=== PATIENT | male | born 1995 | race Hispanic/Latino ===

== ENCOUNTER 2022-11-20 08:04 | Day surgery (SDC) | payer OTHER ==
[2022-11-20] MEDS ORDERED: Ringers Lactate 1,000 ML IV ONE (08:26)
[2022-11-20] MEDS ORDERED: FENTANYL CITR 100 MCG/2 ML ONE (08:56)
[2022-11-20] MEDS ORDERED: dexAMETHasone 10 MG/ML VIAL ONE (08:56)
[2022-11-20] MEDS ORDERED: propofoL 200 MG/20 ML VIAL IV ONE (08:56)
[2022-11-20] MEDS ORDERED: LIDOCAINE 2% MPF 5 ML VIAL ONE (08:56)
[2022-11-20] MEDS ORDERED: ROCURONIUM 50 MG/5 ML VIAL IV ONE (08:56)
[2022-11-20] MEDS ORDERED: MIDAZOLAM HCL 2 MG/2 ML INJ ONE (08:56)
[2022-11-20] MEDS ORDERED: ONDANSETRON 4 MG/2 ML VIAL ONE (08:57)
[2022-11-20] MEDS ORDERED: LIDOCAINE 1% W/EPI 1:100,000 10 ML VIAL ONE (09:15)
[2022-11-20] MEDS ORDERED: OXYMETAZOLINE HCL 0.05% 15ML NAS ONE (10:01)
[2022-11-20 10:35] VITALS: O2SAT 100
[2022-11-20] MEDS ORDERED: HYDROCODONE/APAP 7.5/325 MG TAB ONE (11:18)
[2022-11-20 13:38] VITALS: BP 143/75; TEMP 98
--- NOTE | 2022-11-21 20:55 | OP ---
Date of Procedure: 11/20/2022 Surgeon: SARA NATH Primary Care Physician: Unknown. Preoperative Diagnosis: Nasopharynx neoplasm, uncertain behavior. Postoperative Diagnosis: Nasopharynx neoplasm, uncertain behavior. Procedures: 1.Bilateral nasopharyngoscopy with biopsies of nasopharyngeal neoplasm. 2.Excision/destruction of nasopharyngeal neoplasm. Anesthesia: General endotracheal anesthesia was administered. Afrin-soaked nasal pledgets were used for vasoconstriction and decongestion. Specimens: Taken from the nasopharynx. Estimated Blood Loss: Less than 5 mL. 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 Complications: None. Disposition: Stable. The patient tolerated the procedure well. Indication For Procedure: The patient is a pleasant 27-year-old male who presented to my outpatient clinic initially with ear pain that has been refractory to medical management. 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 These were indications to bring the patient to operative suite for the above-mentioned procedures. He understood, all ques tions were answered. Risks versus benefits, complications were explained in detail and a consent for m signed, which was placed in the chart. Description Of Procedure: The patient was transferred from the preoperative holding area to the oper ative suite by Department of Anesthesia, placed on the operating table supine, and sedated and intuba lorrie in normal fashion. Table was rotated 180 degrees and head rest was placed. Afrin-soaked nasal p ledgets were introduced into bilateral nasal cavities and held in place for approximately 10 to 15 mi nutes. The pledgets were removed and after the patient was sedated and prepped and draped, a 0 degree rigid nasal endoscope was introduced into bilateral nasal cavities along the floor and photodocumentation w as obtained. Neoplasm was removed utilizing Blakesley biting forceps. Multiple biopsies were taken. Then Afrin-soaked nasal pledgets were reintroduced into the nasal cavities. Next, I inserted a McIvor retractor and introduced it right along the endotracheal tube and then susp ended it from the Wang stand. After removing the pledgets, I introduced red rubber catheters into bi lateral nasal cavities in order to suspend the soft palate and uvula. Visualizing nasopharynx area, I performed destruction and excision of the remaining lesion with sucti on Bovie cauterization and curved Blakesley forceps. Hemostasis was achieved with suction Bovie. A flexible orogastric tube was inserted into the esophagus and stomach and all fluid contents were lenny dennis. The patient was then de-suspended from [facility]. The McIvor retractor was removed. The patient's jaw was checked and found to be in proper alignment. He was transferred back by Department of Anesth esia in stable condition where he was subsequently awakened, extubated, and transferred to postoperat caitlin care unit. He will be discharged home on [id number] analgesia medication and will follow u p in 1 to 2 weeks or sooner if needed. CORNELIO/JAIDEN Voice ID: [id number] Report ID: [id number]
== END 2022-11-20 12:10 | disposition home or self-care (01) ==
LOC: OR 08:04
PROVIDERS: ATTEND Otolaryngology Facial Plastic Surgery
PROC: 09BN8ZX Excision of Nasopharynx, Via Natural or Artificial Opening Endoscopic, Diagnostic (ICD-10-PCS; 2022-11-20)
PROC: 09B Ear, Nose, Sinus, Excision (ICD-10-PCS; principal; 2022-11-20 09:15)
DX: D37.05 Neoplasm of uncertain behavior of pharynx (principal)
CPT/HCPCS: 88305; 42999; J2704; J2001; J2250; J3010; J1100; J2405; J7120